=== PATIENT | female | born 1965 | race Hispanic/Latino ===

== ENCOUNTER 2018-05-08 07:02 | Day surgery (SDC) | payer OTHER ==
[2018-05-07 11:24] VITALS: BMI 30.9
[~2018-05-08 07:02] MED LIST: Cyclopentolate 1% Opth Drop 2 ML BOT FS SCH; EPINEPHrine 0.3 MG, Dextrose 50% 3 ML in Ophthalmic Irrigation Solution 500 ML FS SCH; Phenylephrine 2.5% Ophth Soln 5 ML BOT FS SCH
[2018-05-08] MEDS ORDERED: Phenylephrine 2.5% Ophth Soln 5 ML BOT ONE (07:30)
[2018-05-08] MEDS ORDERED: Cyclopentolate 1% Opth Drop 2 ML BOT ONE (07:30)
[2018-05-08] MEDS ORDERED: Midazolam HCl 2 mg/2 ml Vial ONE (09:39)
[2018-05-08] MEDS ORDERED: Fentanyl 100 MCG/2 ML VIAL ONE (09:39)
--- NOTE | 2018-05-08 12:17 | OP ---
DATE OF PROCEDURE: 05/08/2018 PREOPERATIVE DIAGNOSIS: Neovascular glaucoma, right eye. POSTOPERATIVE DIAGNOSIS: Neovascular glaucoma, right eye. PROCEDURES PERFORMED: Pars plana vitrectomy and panretinal photocoagulation, tube shunt, scleral pat ch graft, right eye. ANESTHESIA: Local with monitored anesthesia care. PROCEDURE IN DETAIL: The patient was identified in the preoperative holding area. Appropriate infor med consent for the planned surgical procedure on the right eye had been obtained. The patient was t ransported to the operative suite where appropriate cardiopulmonary monitoring was established. Loca l anesthesia was obtained using retrobulbar and modified Van Lint lid block using 50:50 mixture of 4% lidocaine, 0.75% bupivacaine. The patient was prepped and draped in the usual sterile manner for op hthalmic surgery on the right eye. Lid speculum was placed in the right eye. The 25-gauge trocars w ere placed in conjunctiva and sclera supratemporally, inferotemporally, and supranasally. Infusion l ine was placed inferotemporally. Light pipe and vitreous cutter were inserted into the eye. Core vi trectomy was performed. Membranes were peeled from the retinal surface. Schafer retinal photocoagulatio n was placed into all non-macular areas of the retina. Iris hooks were used to enlarge the pupil and remove cyclitic membrane surface. FP7 tube shunt was placed superior temporally and fixated into pl marcos with 6-0 mersilene suture. Tube was placed into the vitreous cavity superior temporally, 4 mm po sterior to the limbus and covered with Tutoplast graft which was fixated in place with 7-0 Vicryl sut ure. Conjunctiva was closed with 6-0 plain gut suture. Retrobulbar Kenalog and subconjunctival Ance f were placed. Atropine and bicarbonate antibiotic ointment were placed, and the eye was patched and shielded. The patient was taken to the postoperative recovery unit in good condition having suffere d no immediate perioperative period. DISCHARGE INSTRUCTIONS: Patient was instructed to keep patch and shield on, avoid lifting or bending , and follow up.
[2018-05-08] MEDS ORDERED: CEFAZOLIN 1 GM VIAL ONE (14:20)
[2018-05-08] MEDS ORDERED: Lidocaine 4% PF 5 ML AMP ONE (14:20)
[2018-05-08] MEDS ORDERED: Lidocaine 1% PF 5 ML VIAL ONE (14:20)
[2018-05-08] MEDS ORDERED: Triamcinolone 40 MG/ML VIAL ONE (14:20)
[2018-05-08] MEDS ORDERED: Bupivacaine 0.75% 10 ML AMP ONE (14:20)
[2018-05-08] MEDS ORDERED: PROPOFOL 200 MG/20 ML VIAL ONE (14:20)
[2018-05-08] MEDS ORDERED: Maxitrol 0.1% Opth Oint 3.5 GM TUBE ONE (14:20)
== END 2018-05-08 12:21 | disposition home or self-care (01) ==
LOC: SDC 07:02
PROVIDERS: ATTEND Ophthalmology Retina Specialist
PROC: 08123J4 Bypass Right Anterior Chamber to Sclera with Synthetic Substitute, Percutaneous Approach (ICD-10-PCS; principal; 2018-05-08)
PROC: 08943ZZ Drainage of Right Vitreous, Percutaneous Approach (ICD-10-PCS; principal; 2018-05-08)
DX: E11.39 Type 2 diabetes mellitus with other diabetic ophthalmic complication (principal); H40.89 Other specified glaucoma; Z79.84 Long term (current) use of oral hypoglycemic drugs
CPT/HCPCS: 36416; J0171; J0690; J2001; J2250; J2704; J3010; J3301; J3490

== ENCOUNTER 2018-07-17 09:50 | Day surgery (SDC) | payer OTHER ==
[~2018-07-17 09:50] MED LIST changes: +Bupivacaine 0.75% 10 ML AMP ONE; +CEFAZOLIN 1 GM VIAL ONE; -Cyclopentolate 1% Opth Drop 2 ML BOT FS SCH; +Cyclopentolate 1% Opth Drop 2 ML BOT L EYE SCH; +Lidocaine 1% PF 5 ML VIAL ONE; +Lidocaine 4% PF 5 ML AMP ONE; +Maxitrol 0.1% Opth Oint 3.5 GM TUBE ONE; +PROPOFOL 200 MG/20 ML VIAL ONE; -Phenylephrine 2.5% Ophth Soln 5 ML BOT FS SCH; +Phenylephrine 2.5% Ophth Soln 5 ML BOT L EYE SCH; +Triamcinolone 40 MG/ML VIAL ONE
[2018-07-17] MEDS ORDERED: Cyclopentolate 1% Opth Drop 2 ML BOT ONE (10:11)
[2018-07-17] MEDS ORDERED: Phenylephrine 2.5% Ophth Soln 5 ML BOT ONE (10:11)
[2018-07-17] MEDS ORDERED: PROPOFOL 20 ML ONE (11:27)
[2018-07-17] MEDS ORDERED: Midazolam HCl 2 mg/2 ml Vial ONE (11:27)
--- NOTE | 2018-07-17 12:49 | OP ---
DATE OF SURGERY: 07/17/2018 PREOPERATIVE DIAGNOSIS: Tractional retinal detachment, left eye. POSTOPERATIVE DIAGNOSIS: Tractional retinal detachment, left eye. PROCEDURE: Pars plana vitrectomy and complex retinal detachment repair, left eye. SURGEON: Wilder Maguire M.D. ANESTHESIA: Local with monitored anesthesia care. PROCEDURE IN DETAIL: The patient was identified in the preoperative holding area. Appropriate infor med consent for the planned surgical procedure on the left eye had been obtained. The patient was tr ansported to the operative suite. Appropriate cardiopulmonary monitoring established. Local anesthe jasiel was obtained using retrobulbar and modified Van Lint lid block using 50 to give mixture of 4% lid ocaine, 0.75% bupivacaine. The patient was prepped and draped in the usual sterile manner for ophtha lmic surgery in the left eye. Lid speculum was placed in the left eye. The 25-gauge trocars were pl aced in conjunctiva and sclera supratemporally, inferotemporally, and supranasally. Infusion line wa s placed inferotemporally. Light pipe and vitreous cutter were inserted into the eye. Core vitrecto my was performed. Areas of traction were noted on the nerve and along the supratemporal arcade. The se were causing a localized elevation of the retina. This was trimmed free, allowed to settle apartment property manager iorly. All blood was cleared from the eye. Panretinal photocoagulation was placed into all nonmacul ar areas of the retina. Trocars were removed, and the eye was noted to retain pressure well. Retrob ulbar Kenalog and subconjunctival Ancef were placed. Atropine and antibiotic ointment were placed, a nd the eye was patched and shielded. The patient was taken to the postoperative recovery unit in goo d condition having suffered no immediate perioperative complications. DISCHARGE INSTRUCTIONS: The patient was instructed to keep patch and shield on, avoid lifting or miguel ding, and follow up in the morning with Dr. Maguire.
== END 2018-07-17 13:25 | disposition home or self-care (01) ==
LOC: SDC 09:50
PROVIDERS: ATTEND Ophthalmology Retina Specialist
PROC: 08T53ZZ Resection of Left Vitreous, Percutaneous Approach (ICD-10-PCS; principal; 2018-07-17)
PROC: 08QF3ZZ Repair Left Retina, Percutaneous Approach (ICD-10-PCS; principal; 2018-07-17)
PROC: 08NF3ZZ Release Left Retina, Percutaneous Approach (ICD-10-PCS; principal; 2018-07-17)
DX: H33.42 Traction detachment of retina, left eye (principal); H43.12 Vitreous hemorrhage, left eye; Z79.84 Long term (current) use of oral hypoglycemic drugs
CPT/HCPCS: J0171; J0690; J2001; J2250; J2704; J3301; J3490

== ENCOUNTER 2019-11-29 11:07 | Observation (INO) | payer OTHER, SELFPAY ==
[2019-11-29] MEDS ORDERED: Lorazepam 2 MG/ML VIAL ONE (11:17)
[2019-11-29 11:39] LABS: #Basophils 0.1 thou/uL (0.0-0.2); #Eosinphils 0.4 thou/uL (0.0-0.7); #Lymphocytes 3.6 thou/uL (1.20-3.40); #Monocytes 0.4 thou/uL (0.11-0.59); #Neutrophils 8.9 thou/uL (1.40-6.50); %Basophils 0.7 % (0.0-1.0); %Eosinophils 2.7 % (0.0-10.0); %Lymphocytes 27.2 % (21.0-51.0); %Neutrophils 66.5 % (42.0-75.0); Hemoglobin 14.4 g/dL (12.0-16.0); Mean Corpuscular HGB CONC 33.9 g/dL (32.0-36.0); Mean Corpuscular Hemoglobin 30.4 pg (27.0-31.0); Mean Corpuscular Volume 89.7 fL (78.0-98.0); Mean Platelet Volume 8.1 fL (7.4-10.4); Platelet Count 327 thou/uL (130-400); RBC Distribution Width 12.7 % (11.5-14.5); Red Blood Cell (RBC) Count 4.74 mill/uL (4.20-5.40); White Blood Cell (WBC) Count 13.4 thou/uL (4.8-10.8)
[2019-11-29 12:02] LABS: ALT (SGPT) 26 U/L (8-55); AST (SGOT) 30 U/L (5-34); Albumin 4.9 g/dL (3.5-5.0); Alkaline Phosphatase 100 U/L (40-110); Anion Gap 22 mmol/L (10-20); BUN (Urea Nitrogen) 13 mg/dL (9.8-20.1); Bilirubin, Total 0.9 mg/dL (0.2-1.2); Calc. Creatinine Clearance 0 mL/min (70-130); Calcium 10.4 mg/dL (7.8-10.44); Carbon Dioxide 20 mmol/L (22-29); Chloride 105 mmol/L (98-107); Estimated GFR-MDRD 78; Globulin 3.8 g/dL (2.4-3.5); Glucose 193 mg/dL (70-105); Potassium 4.9 mmol/L (3.5-5.1); Protein, Total 8.7 g/dL (6.0-8.3); Sodium 142 mmol/L (136-145)
--- NOTE | 2019-11-29 12:26 | CT ---
CT Brain WO Con History: Difficulty speaking Comparison: None. Findings: No acute hemorrhage or infarct. No midline shift or mass effect. The ventricular size and e xtra axial CSF spaces are normal. The calvarium is intact. Scalp soft tissues are intact as well as the globes. Possible surgical impla nt along the lateral margin right globe. Impression: No acute intracranial abnormality.
[2019-11-29] MEDS ORDERED: Aspirin 325 MG TAB ONE (13:07)
[2019-11-29] MEDS ORDERED: Insulin Regular 300 UNITS/3 ML VIAL SC PRN ×2 (16:09)
[2019-11-29] MEDS ORDERED: Dextrose 5% in Water 1,000 ML IV PRN (16:09)
[2019-11-29] MEDS ORDERED: Dextrose 50% Abboject 50 ML SYRINGE SLOW IVP PRN (16:09)
[2019-11-29] MEDS ORDERED: Ondansetron ODT 4 MG TAB PO PRN (16:10)
[2019-11-29] MEDS ORDERED: Acetaminophen 325 MG TAB PO PRN (16:10)
[2019-11-29] MEDS ORDERED: Calcium Carbonate 500 MG ChewTAB PO PRN (16:10)
[2019-11-29] MEDS ORDERED: Ondansetron PF 4 MG/2 ML Vial IVP PRN (16:10)
[2019-11-29 16:26] LABS: Hemoglobin A1c 7.1 % (4.0-6.0)
[2019-11-29] MEDS ORDERED: Metoprolol Tartrate 25 MG TAB PO SCH (16:45)
--- NOTE | 2019-11-29 17:05 | HP ---
PRIMARY CARE: [facility]. CHIEF COMPLAINT: Stroke-like symptoms. HISTORY OF PRESENT ILLNESS: The patient is a 54-year-old white female with diabetes mellitus type 2, presented to the emergency room with above complaints. At this morning after breakfast, the patient started having nausea that was followed by shortness of breath along with numbness of the fingers of bilateral upper extremity. She also had chest discomfort along with lightheadedness, dizziness, and generalized sweating. She then had stuttering. The symptom lasted up to half an hour or so. At this time, the patient denies any double vision, blurring of vision, facial asymmetry, weakness, and numbness of any of her extremities. She appears back to her baseline. She denies any headaches, seizure, palpitations, or syncope. PAST MEDICAL HISTORY: 1. Tobacco dependence. 2. Diabetes mellitus type 2 with diabetic neuropathy. PAST SURGICAL HISTORY: 1. Right eye surgery. 2. Cholecystectomy. 3. section. ALLERGIES: NO KNOWN DRUG ALLERGIES. CURRENT HOME MEDICATION: 1. Metformin 1000 mg b.i.d. 2. Glipizide 5 mg daily. SOCIAL HISTORY: The patient smokes up to one pack a day for last 30 years. No alcohol or drug use. FAMILY HISTORY: Positive for diabetes. REVIEW OF SYSTEMS: All other review of systems was reviewed and were found negative. PHYSICAL EXAMINATION: VITAL SIGNS: Temperature 97.6, respirations of 16, pulse of 104, and blood pressure of 198/86 on ER arrival. Her O2 saturation of 100% on room air. Her blood pressure improved to 116/69. GENERAL: A 54-year-old female in no apparent distress. HEENT: Head, atraumatic and normocephalic. Sclerae anicteric. Moist mucous membranes. No oral lesion. NECK: Supple. No JVD appreciated. No carotid bruit. LUNGS: Clear to auscultation bilaterally. No wheezing, rales, or rhonchi. HEART: S1 and S2 present. Regular rate and rhythm. No rubs or gallops. ABDOMEN: Soft and nontender. Bowel sounds present. EXTREMITIES: No edema or calf tenderness. NEUROLOGIC: Cranial nerves 2 through 12 are normal on examination. Please note, the patient has visual deficit through her right eye. She also states that she has a tube in the lacrimal duct system. Power was 5/5 in all extremities. [id number]-ej-[id number] test was normal. Sensation to touch was normal bilaterally. The patient has chronic numbness in bilateral lower extremity. PSYCHIATRY: Alert, awake, and oriented x3. SKIN: Warm and dry. LYMPH NODES: No palpable lymph nodes in the neck. LAB FINDINGS: CBC showed WBC 13.4 with hemoglobin 14.4, hematocrit 42.5, and platelet 327. Chemistry showed sodium 142, potassium 4.9, chloride 105, bicarb 20, BUN 13, and creatinine 0.7. LFTs in normal range. Troponin negative. EKG by my review showed sinus tachycardia with premature atrial complexes. CT scan of the brain by my review was negative for acute CVA. IMPRESSION: 1. Transient ischemic attack versus panic attack. 2. Diabetes mellitus type 2 with diabetic neuropathy. 3. Premature ventricular complex. 4. Tobacco dependence. 5. Chronic kidney disease stage 2. 6. Ongoing tobacco abuse. PLAN: The patient will be monitored in the stroke unit. Echocardiogram will be obtained. We will add low-dose beta blockers due to PVCs. We will also check carotid Doppler. Check A1c. The patient was counseled on tobacco cessation. We will add low-dose aspirin. The patient and the family understands the above plan of care. Job ID: [id number]
[2019-11-29 18:00] VITALS: BMI 32.5
[2019-11-29 18:18] LABS: Troponin I 0.021 ng/mL (< 0.028)
[2019-11-29] MEDS ORDERED: FLU VACC QS2019-20(6MOS UP)/PF 60 MCG/0.5 ML SYRINGE IM ONE (21:00)
[2019-11-29] MEDS ORDERED: Atorvastatin Calcium 40 MG TAB PO SCH (21:00)
[2019-11-29] MEDS ORDERED: Atorvastatin Calcium 10 MG TAB PO SCH (21:00)
--- NOTE | 2019-11-29 22:47 | ULT ---
EXAM: Carotid Doppler PROVIDED CLINICAL HISTORY: TIA COMPARISON: None FINDINGS: Grayscale and color Doppler sonography with spectral analysis was performed of the extracranial carot id system bilaterally. There is no evidence for a hemodynamically significant internal carotid artery stenosis by peak systolic velocity or ratio criteria. Antegrade flow is seen in the vertebral arteries. IMPRESSION: No sonographic evidence for a hemodynamically significant internal carotid artery stenosis.
[2019-11-30 05:17] LABS: Cardiac Risk 4.5 (Less than 4.5)
[2019-11-30] MEDS ORDERED: Cyanocobalamin 1000 MCG/ML VIAL IM SCH (08:30)
[2019-11-30] MEDS ORDERED: Enoxaparin Sodium 40 MG/0.4 ML SYRINGE SC SCH (09:00)
[2019-11-30] MEDS ORDERED: Aspirin 81 mg Enteric Coated Tablet PO SCH (09:00)
[2019-11-30] MEDS ORDERED: Metoprolol Tartrate 25 MG TAB PO SCH (09:00)
[2019-11-30] MEDS ORDERED: Insulin Regular 300 UNITS/3 ML VIAL SC PRN (11:16)
[2019-11-30 15:45] VITALS: BP 127/64; TEMP 97.9
--- NOTE | 2019-11-30 21:30 | DIS ---
DATE OF ADMISSION: 11/29/2019 DATE OF DISCHARGE: 11/30/2019 DISCHARGE DISPOSITION: Home. FOLLOWUP: With primary care physician at [facility] in [facility] in 1 week. The patient was seen and examined on the day of discharge. Denies any new complaints. No chest pain, shortness of breath, or focal deficit reported. INPATIENT CONSULTANTS: None. SIGNIFICANT LABORATORY DATA: Hemoglobin A1c 7.1. Fasting lipid profile showed cholesterol 158, LDL 98, HDL 35, triglyceride 127. Folic acid was 18.4. Vitamin B12 at 181. Creatinine 0.77. Troponin was negative. DISCHARGE MEDICATIONS: 1. Metoprolol 25 mg b.i.d. 2. Vitamin B12 at 1000 mcg daily. 3. Aspirin 81 mg daily. 4. The patient was advised to resume glipizide and metformin. BRIEF HOSPITAL COURSE: The patient is a 54-year-old white female, with diabetes mellitus type 2 and tobacco dependence, presented to the emergency room with stroke-like symptoms. She started having nausea along with shortness of breath along with numbness of the fingers of bilateral upper extremity. She then had chest discomfort along with lightheadedness, dizziness, and generalized sweating. She then started stuttering along with crying. Please refer to the History and Physical for further details. The patient was admitted to the hospital with a diagnosis of suspected panic attack versus transient ischemic attack. EKG showed multiple premature ventricular complexes. She was monitored on telemetry unit. She underwent carotid Doppler that was negative for hemodynamically significant stenosis. Echocardiogram showed ejection fraction of 50% to 55% with diastolic dysfunction, mild mitral regurgitation and mild tricuspid regurgitation. The metoprolol significantly helped with the PVCs. She was started on vitamin B12 supplementation as well. She was extensively counseled on lifestyle modification including tobacco cessation. FINAL DIAGNOSES: 1. Suspected panic attacks versus symptomatic premature ventricular contractions. Cerebrovascular accident, unlikely. 2. Diabetes mellitus type 2 with diabetic neuropathy. 3. Vitamin B12 deficiency. 4. Tobacco dependence. The patient was counseled. 5. Chronic kidney disease, stage 2. 6. Obesity with a BMI of 32.6. 7. Vitamin B12 deficiency. 8. Chronic kidney disease, stage 2. 9. Leukocytosis, unlikely to be infectious. Job ID: [id number]
[2019-12-01] MEDS ORDERED: Cyanocobalamin (Vitamin B-12) 1,000 MCG TAB PO SCH (09:00)
--- NOTE | 2019-12-05 18:12 | EKG ---
Test Reason : Blood Pressure : / mmHG Vent. Rate : 109 BPM Atrial Rate : 109 BPM P-R Int : 142 ms QRS Dur : 098 ms QT Int : 346 ms P-R-T Axes : 049 -26 052 degrees QTc Int : 465 ms Sinus tachycardia with frequent Premature ventricular complexes Otherwise normal ECG Premature ventricular complexes run of bigeminy Confirmed by ANTWON LAIRD, GUS Muhammad ([id number]), editor in chief newspaper LESIA JETER ([id number]) on 12/05/2019 6:12:20 PM Referred By: Confirmed By:GUS KAPOOR MD
--- NOTE | 2019-12-05 18:12 | EKG ---
Test Reason : Blood Pressure : / mmHG Vent. Rate : 103 BPM Atrial Rate : 103 BPM P-R Int : 172 ms QRS Dur : 092 ms QT Int : 348 ms P-R-T Axes : 057 -36 053 degrees QTc Int : 455 ms Sinus tachycardia Left axis deviation Abnormal ECG Confirmed by ANTWON LAIRD, GUS Muhammad ([id number]), material expeditor LESIA JETER ([id number]) on 12/05/2019 6:12:24 PM Referred By: Confirmed By:GUS KAPOOR MD
== END 2019-11-30 19:14 | disposition home or self-care (01) ==
LOC: ERS 11:07 → 2SE 14:33
PROVIDERS: ADMIT Internal Medicine; ATTEND Internal Medicine
DX: R42 Dizziness and giddiness (principal); R07.89 Other chest pain; R06.02 Shortness of breath; R20.0 Anesthesia of skin; E11.40 Type 2 diabetes mellitus with diabetic neuropathy, unspecified; E11.22 Type 2 diabetes mellitus with diabetic chronic kidney disease; N18.2 Chronic kidney disease, stage 2 (mild); F17.210 Nicotine dependence, cigarettes, uncomplicated; I49.3 Ventricular premature depolarization; E53.8 Deficiency of other specified B group vitamins; D72.829 Elevated white blood cell count, unspecified; E66.9 Obesity, unspecified; Z68.32 Body mass index [BMI] 32.0-32.9, adult; Z79.84 Long term (current) use of oral hypoglycemic drugs
CPT/HCPCS: 36415; 36416; 70450; 80053; 80061; 82607; 82746; 83036; 83735; 84484; 85025; 90471; 90732; 93005; 93306; 93880; 96372; 96374; G0009; G0378; J1650; J1815; J2060; J3420

== ENCOUNTER 2020-07-20 08:55 | Outpatient (CLI) | payer OTHER ==
--- NOTE | 2020-07-20 09:11 | MMO ---
Left Breast MAMMO Unilat Diag DDI LT+CHRISTOPHER. CLINICAL HISTORY: Patient is 54 years old and is seen for additional evaluation requested from prior study. The patient has no family history of breast cancer. The patient has no personal history of cancer. VIEWS: The views performed were: left craniocaudal spot compression with tomosynthesis and left mediolateral with tomosynthesis. FILMS COMPARED: The present examination has been compared to a prior imaging study performed at [facility] on 07/08/2020. This study has been interpreted with the assistance of computer-aided detection. MAMMOGRAM FINDINGS: There are scattered fibroglandular densities. Tomosynthesis images show the abnormality to represent superimpostion of normal breast parenchyma. There are no suspicious masses, suspicious calcifications, or new areas of architectural distortion. IMPRESSION: THERE IS NO MAMMOGRAPHIC EVIDENCE OF MALIGNANCY. A ROUTINE FOLLOW-UP MAMMOGRAM IN 1 YEAR IS RECOMMENDED. THE RESULTS OF THIS EXAM WERE SENT TO THE PATIENT. ACR BI-RADS Category 2 - Benign finding MAMMOGRAPHY NOTE: 1. A negative mammogram report should not delay a biopsy if a dominant of clinically suspicious mass is present. 2. Approximately 10% to 15% of breast cancers are not detected by mammography. 3. Adenosis and dense breasts may obscure an underlying neoplasm. Reported by: MINERVA VARGAS MD Electonically Signed: [id number]
== END 2020-07-20 08:56 | disposition home or self-care (01) ==
LOC: BICMAMMO 08:55
PROVIDERS: ATTEND Nurse Practitioner Family
DX: R92.2 Inconclusive mammogram (principal)
CPT/HCPCS: G0279